=== PATIENT | female | born 1965 | race Caucasian/White ===

== ENCOUNTER → 2018-08-12 08:30 | Outpatient (CLI) | payer OTHER | END | disposition home or self-care (01) | LOC: D.MAMMO 08:30 | PROVIDERS: ATTEND Family Medicine | DX: Z12.31 Encounter for screening mammogram for malignant neoplasm of breast (principal) ==

== ENCOUNTER 2019-02-24 10:47 | Day surgery (SDC) | payer OTHER ==
[~2019-02-24] VITALS: Ht 172.7 cm; Wt 92.3 kg
--- NOTE | ~2019-02-24 | OP ---
PATIENT NAME: JAE GEORGE MEDICAL RECORD: [id number] :63 LOCATION:D.OPS ADMISSION DATE: SURGEON: GLEN CORNEJO MD DATE OF OPERATION: 02/24/2019 PREOPERATIVE DIAGNOSIS: Ascending colon polyps, one of which was tattooed. POSTOPERATIVE DIAGNOSIS: Ascending colon polyps, one of which was tattooed with 2 large polyps noted in the ascending colon, one was 1.8 cm and the other one was 2.4 cm in diameter. PROCEDURES: 1. Total colonoscopy to cecum. 2. Hot biopsy forceps polypectomies times 2 and I also utilized the argon plasma metal bending machine operator. SURGEON: Glen Cornejo MD PUTTY MIXER AND APPLIER: None. BLOOD LOSS: Minimal. ANESTHESIA: IV sedation. COMPLICATIONS: None. The risks, possible complications, and alternatives to the procedure were explained to the patient. She elects to proceed. ENDOSCOPIC COURSE: The patient was conveyed to endoscopy suite electively on 02/24/2019. IV sedation was induced by the anesthesia staff. The patient was placed in the Sant[place] position. A digital rectal examination was performed. A colonoscope was inserted through the anus. It was easily advanced to the cecum. The prep was adequate. I slowly withdrew the endoscope. I irrigated and aspirated extensively. The pullback was greater than 15-minute pullback. I identified both polyps, one of which had been tattooed proximal and distal to the polyp. The other one was more distal. At both polyps sites hot biopsy forceps polypectomies were performed. There was some residual polypoid tissue left after the polypectomies and this was ablated with the argon plasma metal bending machine operator utilizing the right colon setting in the forced mode. I continued to withdrawal of the endoscope. I dragged the folds. A combination of normal imaging and narrow band imaging were utilized. A retroflexed view was obtained in the rectum. I then unretroflexed the scope and removed it under direct vision. I will plan to see the patient in my office in 2-3 weeks. If no malignancy is identified within these polyps, I will plan for her next surveillance colonoscopy to take place in 1 year. TRANSINT:[id number] Voice Confirmation ID: [id number] DOCUMENT ID: [id number] OPERATIVE REPORT [id number] JESUSJAE FINNEYGLEN YOUNG MD CC: RADHA ARAYA and JAKI HALEY DO [id number] DICTATION DATE: 02/24/19 2104 SEGMENT PRODUCER: 02/25/19 0518 [facility] 02/24/19 [address] [address] [place] [address]
[2019-02-24 11:25] LABS: ANION GAP 9.2 mmol/L (8-16); CALCIUM 8.9 mg/dL (8.5-10.1); CARBON DIOXIDE 31.3 mmol/L (21.0-32.0); POTASSIUM - SERUM 3.5 mmol/L (3.5-5.1)
[2019-02-24 11:30] LABS: HEMATOCRIT 41.5 % (36.0-48.0); HEMOGLOBIN 14.1 g/dL (12-16); MCH 33.3 pg (26.0-34.0); MCV 98.1 fL (80.0-100.0); MEAN PLATELET VOLUME 9.5 fL (7.4-10.4); RBC 4.23 10x6/uL (4.00-5.40); RDW 13.2 % (11.5-14.5); WBC 6.4 10x3/uL (4.8-10.8)
[2019-02-24] MEDS ORDERED: PREMPRO (11:47)
[2019-02-24] MEDS ORDERED: VALIUM10 MG PO ×2 (11:48→11:49)
[2019-02-24] MEDS ORDERED: STRATTERA40 MG PO (11:48)
[2019-02-24] MEDS ORDERED: MINIPRESS1 MG PO (11:50)
[2019-02-24] MEDS ORDERED: LIPITOR20 MG PO (11:51)
[2019-02-24] MEDS ORDERED: BUPROPION XL150 MG PO (11:51)
[2019-02-24] MEDS ORDERED: HYDROCHLOROTH12.5 M1 PO (11:52)
[2019-02-24] MEDS ORDERED: CENTRUM SILVER1 EAC3 PO (11:52)
[2019-02-24 12:03] VITALS: BP 145/82; Ht 172.7 cm; Wt 92.3 kg
--- NOTE | 2019-02-24 18:21 | NUR ---
COLONOSCOPY COMPLETED. ARGON UTILIZED. TOLERATED WELL.
== END 2019-02-24 19:25 | disposition home or self-care (01) ==
LOC: D.OPS 10:47
PROVIDERS: Anesthesiology; ATTEND Surgery
DX: K63.5 Polyp of colon (principal); E78.00 Pure hypercholesterolemia, unspecified; I10 Essential (primary) hypertension